=== PATIENT | male | born 1970 | race Caucasian/White ===

== ENCOUNTER 2019-06-19 12:05 | Emergency (ER) | payer OTHER ==
[2019-06-19 12:35] VITALS: BP 122/76; PULSE 82; TEMP 98.1; BMI 23.0
--- NOTE | 2019-06-19 13:01 | PDOC ---
History of Present Illness - General Chief Complaint: Pain Stated Complaint: HEADACHE,MUSCLE PAIN Time Seen by Provider: 06/19/19 12:10 History Source: Patient Exam Limitations: No Limitations - History of Present Illness Initial Comments: 06/19/19 12:49 49y M with PMH of Ischemic CVA x2 (most recent 13 months ago s/p tpa), HLD, PVD s/p stents presenting to ED with complaints of 2 weeks of R leg paresthesia and R sided headache. Pt states that the R quads feel numb, not worsened with movement, no back pain, no injuries. He states the headaches happen when he is laying down, it feels like a sharp, shooting pain in the R side of the head and he feels as if his vision is blurry when the headache is bad. The headaches resolve when he is not laying down anymore. He denies injury, facial pain, facial numbness, weakness, neck pain, abdominal pain, n/v/d, chest pain, sob, fevers, chills. PMD: Taran Cards: Juan A Vasc: Green PMH: see hpi PSH: see hpi Meds: prasugrel, atorvastatin Allergies: IV contrast Past History - Past Medical History Allergies/Adverse Reactions: Allergies Allergy/AdvReac Type Severity Reaction Status Date / Time IV contrast Allergy Severe Hives Uncoded 06/19/19 12:25 Home Medications: Ambulatory Orders Atorvastatin Ca [Lipitor] 80 mg PO DAILY 06/19/19 Diclofenac Sodium 75 mg PO BID #14 tablet. 06/19/19 Prasugrel HCl 10 mg PO DAILY 06/19/19 COPD: No Hypercholesterolemia: Yes - Surgical History Abdominal Surgery: Yes (9 stents) - Psycho Social/Smoking Cessation Hx Smoking History: Never smoked Information on smoking cessation initiated: No Hx Alcohol Use: No Drug/Substance Use Hx: No *Physical Exam - Vital Signs Last Vital Signs Temp Pulse Resp BP Pulse Ox 98.1 F 82 17 122/76 97 06/19/19 12:26 06/19/19 12:26 06/19/19 12:26 06/19/19 12:26 06/19/19 12:26 ED Treatment Course - LABORATORY CBC & Chemistry Diagram: 06/19/19 13:20 06/19/19 13:20 Medical Decision Making - Medical Decision Making 06/19/19 18:55 49y M with CVA presenting to ed with headaches and R leg paresthesia. vitals wnl normal neurological exam, pt ambulating without difficulty ddx includes vasculitis, hemorrhage, simple partial seizure -ct head, cbc, cmp, esr, crp labs wnl ct head negative for acute process. will dc home. rx for diclofenac, will advise for neurology f/u. Discharge - Discharge Information Problems reviewed: Yes Clinical Impression/Diagnosis: Leg pain, right Headache Qualifiers: Headache type: unspecified Headache chronicity pattern: acute headache Intractability: not intractable Qualified Code(s): R51 - Headache Condition: Good Disposition: HOME - Admission No - Additional Discharge Information Prescriptions: Diclofenac Sodium 75 mg PO BID #14 tablet.dr - Follow up/Referral - Patient Discharge Instructions Patient Printed Discharge Instructions: DI for Headache Additional Instructions: You were seen in the ER for headache and leg pain. I do not know the exact cause of your pain but the CT and blood work are normal. I recommend following up with your neurologist. I have a list of referrals provided below as well. A prescription for a pain medication was sent to your pharmacy. Take as directed. Come back to the ER if you have worsening pain, stroke like symptoms or if any new or concerning symptom develops. Thank you - Post Discharge Activity
[2019-06-19 13:46] LABS: BASO % 0.5 % (0-2.0); EOS % 0.8 % (0-4.5); HEMATOCRIT 49.1 % (35.4-49); HEMOGLOBIN 16.7 GM/dl (11.7-16.9); LYMPH % 29.5 % (8-40); MCH 33.5 pg (25.7-33.7); MCHC 33.9 g/dl (32.0-35.9); MEAN CELL VOLUME 98.9 fl (80-96); MEAN PLT VOLUME 9.6 fl (7.5-11.1); MONO % 7.9 % (3.8-10.2); NEUT % 61.3 % (42.8-82.8); PLATELET COUNT 232 K/MM3 (134-434); RBC 4.97 M/mm3 (4.00-5.60); RDW 12.7 % (11.9-15.9); WHITE BLOOD COUNT 9.6 K/mm3 (4.0-10.8)
[2019-06-19 13:49] LABS: ALBUMIN 4.2 g/dl (3.4-5.0); BILIRUBIN,TOTAL 1.3 mg/dl (0.2-1); CALCIUM 9.3 mg/dl (8.5-10); CREATININE 0.9 mg/dl (0.55-1.3); POTASSIUM 4.5 mmol/L (3.5-5.1); TOT PROT 7.3 g/dl (6.4-8.2)
--- NOTE | 2019-06-19 16:39 | PDOC ---
Attending Attestation - Resident Resident Name: TabithaCaroline - Attending Attestation I have performed the following: I have examined & evaluated the patient, The case was reviewed & discussed with the resident, I agree w/resident's findings & plan, Exceptions are as noted - HPI HPI: 06/19/19 16:43 See assessment note - Physicial Exam PE: 06/19/19 16:43 See assessment note - Medical Decision Making 06/19/19 16:43 Resident Name: Caroline Lu - Attending Attestation I have performed the following: I have examined & evaluated the patient, The case was reviewed & discussed with the resident, I agree w/resident's findings & plan, Exceptions are as noted - HPI HPI: 06/19/19 15:33 2-week history of headaches, intermittent, described as throbbing in the coronal area. Positional. Does not believe in taking analgesics. Has taken no medication for the headaches. Despite frequency, have not interfered with his normal activities. Also has paresthesias over the anterior thigh, localized, without weakness or difficulty weightbearing or walking. There is no back pain. 06/19/19 15:36 Extensive history of vascular disease with 2 CVAs in the past, transient left hemiparesthesias, treated with TPA and completely resolved. Severe PVD with stents in both femoral arteries. No NC or angina. 06/19/19 15:39 He continues to smoke cigarettes, heavy smoker despite his severe disease. States that he has never seen a neurologist for his condition. - Physicial Exam PE: 06/19/19 15:34 Physical exam shows normal vital signs. The patient is afebrile PERRLA 4 mm, fundi benign with sharp disc margins and good central venous pulsations Neck without tenderness or deformity, full range of motion without pain. No muscle spasm noted Neurological C2 to 12 intact. Strength full and symmetric. No focal sensorimotor deficits. Cerebellar function intact. Gait stable and unimpaired. Lungs heart and abdomen exams are normal Extremities with full pulses, no sensory or motor deficits could be demonstrated. Gait stable and unimpaired - Medical Decision Making 06/19/19 15:37 Assessment: CT shows old lacunar infarcts. No acute bleed or other acute disease. CBC and chemistries without significant abnormality. ESR normal. Etiology of headaches and paresthesias in the thigh remains obscure. Requiring further specialized neurological evaluation Plan: Analgesics, since he has not had a trial of pain medication. Rest and follow-up with neurologist as soon as possible for further evaluation and treatment. Return to ER if symptoms become more severe or additional symptoms develop. Fully ambulatory and in no significant pain or other distress at discharge to follow-up as recommended.
== END 2019-06-19 15:45 | disposition home or self-care (01) ==
LOC: FER 12:05
DX: R51 Headache (principal); M79.604 Pain in right leg; I73.9 Peripheral vascular disease, unspecified; E78.5 Hyperlipidemia, unspecified; Z95.5 Presence of coronary angioplasty implant and graft; Z86.73 Personal history of transient ischemic attack (TIA), and cerebral infarction without residual deficits; Z91.041 Radiographic dye allergy status
CPT/HCPCS: 36415; 70450-TC; 80053; 85025; 85651; 86140; 99284-25

== ENCOUNTER 2021-05-04 10:28 | Emergency (ER) | payer OTHER ==
[2021-05-04] MEDS ORDERED: ACETAMINOPHEN 325 MG TABLET (FP) PO ONE (10:31)
[2021-05-04 10:44] VITALS: BP 147/68; PULSE 86; TEMP 98.6; BMI 23.7
[2021-05-04] MEDS ORDERED: KETOROLAC TROMETHAMINE 30 MG/1 ML VIAL IM ONE (11:00)
[2021-05-04] MEDS ORDERED: KETOROLAC TROMETHAMINE 30 MG/1 ML VIAL ONE (11:00)
[2021-05-04] MEDS ORDERED: ACETAMINOPHEN 325 MG TABLET (FP) ONE (11:01)
[2021-05-04] MEDS ORDERED: LIDOCAINE 5% TOPICAL PATCH TP ONE (11:19)
[2021-05-04] MEDS ORDERED: LIDOCAINE 5% TOPICAL PATCH ONE (11:26)
[2021-05-04] MEDS ORDERED: LIDOCAINE PATCH REMOVAL MC SCH (22:00)
== END 2021-05-04 11:31 | disposition home or self-care (01) ==
LOC: FER 10:28
PROC: 3E0233Z Introduction of Anti-inflammatory into Muscle, Percutaneous Approach (ICD-10-PCS; principal; 2021-05-04)
DX: M54.41 Lumbago with sciatica, right side (principal); M54.42 Lumbago with sciatica, left side
CPT/HCPCS: 99284-25

== ENCOUNTER 2021-07-21 15:05 | Emergency (ER) | payer OTHER ==
[2021-07-21] MEDS ORDERED: IBUPROFEN 400 MG TABLET (FP) PO ONE ×2 (15:07→15:19)
[2021-07-21] MEDS ORDERED: LIDOCAINE 5% TOPICAL PATCH TP ONE (15:08)
[2021-07-21] MEDS ORDERED: LIDOCAINE 5% TOPICAL PATCH ONE (15:19)
[2021-07-21 15:23] VITALS: BP 140/84; TEMP 97.8; BMI 23.1
[2021-07-21 16:16] VITALS: PULSE 89
[2021-07-21] MEDS ORDERED: LIDOCAINE PATCH REMOVAL MC SCH (22:00)
== END 2021-07-21 16:20 | disposition home or self-care (01) ==
LOC: FER 15:05
DX: M54.50 Low back pain, unspecified (principal)
CPT/HCPCS: 99283-25

== ENCOUNTER 2021-09-18 05:46 | Emergency (ER) | payer OTHER ==
[2021-09-18 05:59] VITALS: TEMP 98.1; BMI 23.1
[2021-09-18] MEDS ORDERED: SODIUM CHLORIDE 1,000 ML IV ONE (06:03)
[2021-09-18] MEDS ORDERED: ONDANSETRON 4 MG/2 ML VIAL IVPB ONE (06:58)
[2021-09-18] MEDS ORDERED: morphine SULFATE 4 MG/ML VIAL IVPUSH ONE (06:58)
[2021-09-18] MEDS ORDERED: ONDANSETRON 4 MG/2 ML VIAL ONE (07:03)
[2021-09-18] MEDS ORDERED: morphine SULFATE 4 MG/ML VIAL ONE (07:03)
[2021-09-18 07:47] LABS: BASO % 0.6 % (0-2.0); EOS % 2.5 % (0-4.5); HEMATOCRIT 48.8 % (35.4-49); HEMOGLOBIN 16.4 GM/dL (11.7-16.9); LYMPH % 32.1 % (8-40); MCH 33.7 pg (25.7-33.7); MCHC 33.6 g/dl (32.0-35.9); MEAN CELL VOLUME 100.4 fl (80-96); MEAN PLT VOLUME 10.1 fl (7.5-11.1); MONO % 8.5 % (3.8-10.2); NEUT % 56.3 % (42.8-82.8); PLATELET COUNT 213 10^3/uL (134-434); RBC 4.86 M/mm3 (4.00-5.60); WHITE BLOOD COUNT 7.1 K/mm3 (4.0-10.0)
[2021-09-18 08:12] LABS: PH,URINE 5.5 (5.0-8.0); URINE APPEARANCE CLEAR; URINE BILIRUBIN NEGATIVE (NEGATIVE); URINE COLOR YELLOW; URINE GLUCOSE (UA) NEGATIVE (NEGATIVE); URINE KETONE NEGATIVE (NEGATIVE); URINE LEUK ESTERASE NEGATIVE (NEGATIVE); URINE NITRITE NEGATIVE (NEGATIVE); URINE PROTEIN NEGATIVE (NEGATIVE); URINE UROBILINOGEN 0.2 mg/dL (0.2-1.0)
[2021-09-18 08:43] LABS: ALBUMIN 4.1 g/dl (3.4-5.0); BILIRUBIN,TOTAL 0.4 mg/dL (0.2-1); BLOOD UREA NITROGEN 18.1 mg/dL (7-18); CALCIUM 9.7 mg/dL (8.5-10.1); CREATININE 0.8 mg/dL (0.55-1.3); TOT PROT 7.5 g/dl (6.4-8.2)
[2021-09-18] MEDS ORDERED: HYDROmorphone HCL CARPU-JECT 1 MG/1 ML DISP.SYRIN IVPB ONE (09:19)
[2021-09-18] MEDS ORDERED: HYDROmorphone HCL/PF 1 MG/ML VIAL ONE (09:23)
[2021-09-18 11:00] VITALS: BP 132/89; PULSE 89
== END 2021-09-18 11:03 | disposition home or self-care (01) ==
LOC: FER 05:46
PROC: 3E033GC Introduction of Other Therapeutic Substance into Peripheral Vein, Percutaneous Approach (ICD-10-PCS; principal; 2021-09-18)
DX: R10.32 Left lower quadrant pain (principal)
CPT/HCPCS: 36415; 74176-TC; 80053; 81003; 83690; 85025; 99285-25

== ENCOUNTER 2022-03-25 09:37 | Emergency (ER) | payer OTHER ==
[2022-03-25 09:55] VITALS: BP 143/71; PULSE 95; RESP 18; TEMP 99.8; BMI 23.7
[2022-03-25] MEDS ORDERED: oxyCODONE HCL 5 MG TABLET PO ONE (10:01)
[2022-03-25] MEDS ORDERED: oxyCODONE HCL 5 MG TABLET ONE (10:10)
[2022-03-25] MEDS ORDERED: LIDOCAINE HCL 1%, 10 MG/ML (20ML VIAL) ONE (10:36)
[2022-03-25] MEDS ORDERED: LIDOCAINE HCL 1%, 10 MG/ML (50 mL VIAL) SQ ONE ×2 (10:36→10:38)
== END 2022-03-25 11:22 | disposition home or self-care (01) ==
LOC: FER 09:37
DX: M25.532 Pain in left wrist (principal)
CPT/HCPCS: 73090-TC-LT-FY; 73110-TC-LT-FY; 73130-TC-LT-FY; 99285-25